=== PATIENT | male | born 1995 | race Hispanic/Latino ===

== ENCOUNTER 2019-03-09 17:48 | Emergency (ER) | payer SELFPAY ==
--- NOTE | 2019-03-09 18:54 | RAD REPORT ---
EXAM DESCRIPTION: RAD - Hand Right 3 View - 03/09/2019 6:29 pm CLINICAL HISTORY: Right hand pain status post injury FINDINGS: No fracture or dislocation is seen.
--- NOTE | 2019-03-09 19:08 | ER ---
Nurse's Notes [facility] Name: Bon England Age: 23 yrs Sex: Male : 1995 Arrival Date: 03/09/2019 Time: 17:52 Bed 20 Private MD: Diagnosis: Right hand pain Presentation: 03/09 17:52 Presenting complaint: Patient states: i did boxing and hurt my R hj hand now it still hurts and its strength is lesser; reports pain is 2/10;. Transition of care: patient was not received from another setting of care. Onset of symptoms was March 09, 2019 at 17:53. Risk Assessment: Do you want to hurt yourself or someone else? Patient reports no desire to harm self or others. Initial Sepsis Screen: Does the patient meet any 2 criteria? No. Patient's initial sepsis screen is negative. Does the patient have a suspected source of infection? No. Patient's initial sepsis screen is negative. Care prior to arrival: None. 17:52 Method Of Arrival: Ambulatory 17:52 Acuity: GRECIA 4 hj Triage Assessment: 18:01 General: Appears in no apparent distress. uncomfortable, Behavior is calm, cooperative, bp appropriate for age. Pain: Complains of pain in right hand. EENT: No deficits noted. Neuro: No deficits noted. Cardiovascular: No deficits noted. Respiratory: No deficits noted. GI: No signs and/or symptoms were reported involving the gastrointestinal system. : No signs and/or symptoms were reported regarding the genitourinary system. Derm: No deficits noted. Musculoskeletal: Circulation, motion, and sensation intact. Range of motion: intact in all extremities. Injury Description: Bruise sustained to right hand. Historical: - Allergies: 17:54 No Known Allergies; hj - PMHx: 17:54 None; hj - PSHx: 17:54 None; hj - Immunization history:: Adult Immunizations up to date. - Social history:: Smoking status: unknown. - Ebola Screening: : No symptoms or risks identified at this time. Screenin:03 Abuse screen: Denies threats or abuse. Denies injuries from another. Nutritional bp screening: No deficits noted. Tuberculosis screening: No symptoms or risk factors identified. Fall Risk None identified. Assessment: 18:03 General: SEE TRIAGE NOTE. bp 19:13 General: Appears in no apparent distress. comfortable, Behavior is calm, cooperative, cc3 appropriate for age. Pain: Complains of pain in right hand. Neuro: Level of Consciousness is awake, alert, obeys commands, Oriented to person, place, time, situation, Appropriate for age. Cardiovascular: Denies chest pain, Patient's skin is warm and dry. Respiratory: Airway is patent Respiratory effort is even, unlabored, Respiratory pattern is regular, symmetrical. GI: Abdomen is round non-distended. : No signs and/or symptoms were reported regarding the genitourinary system. EENT: No signs and/or symptoms were reported regarding the EENT system. Derm: Skin is intact, is healthy with good turgor, Skin is pink, warm \T\ dry. normal. Musculoskeletal: Circulation, motion, and sensation intact. Range of motion: limited in right hand. 19:13 Reassessment: Patient appears in no apparent distress at this time. Patient and/or cc3 family updated on plan of care and expected duration. Pain level reassessed. Patient is alert, oriented x 3, equal unlabored respirations, skin warm/dry/pink. Received this male patient from morning shift RN Miguel as a case of right hand injury. No IV cannula in situ. Patient denies pain at this time. 19:25 Reassessment: Patient appears in no apparent distress at this time. Patient and/or cc3 family updated on plan of care and expected duration. Pain level reassessed. Patient is alert, oriented x 3, equal unlabored respirations, skin warm/dry/pink. Dr. Matthews discharged home the patient with prescription given. Semi-formed right hand splint done by floor technoe Gonsales. No IV cannula in situ. Patient left ER vitally stable and ambulatory. Patient denies pain at this time. Patient states feeling better. Vital Signs: 17:54 BP 141 / 87; Pulse 84; Resp 18; Temp 98.2(O); Pulse Ox 100% on R/A; Weight 111.13 kg; hj Height 5 ft. 11 in. (180.34 cm); Pain 2/10; 19:09 BP 127 / 81; Pulse 48; Resp 17; Temp 98.1(TE); Pulse Ox 97% on R/A; mh5 17:54 Body Mass Index 34.17 (111.13 kg, 180.34 cm) ED Course: 17:52 Patient arrived in ED. mr 17:53 Triage completed. hj 17:54 Arm band placed on left wrist. hj 18:00 Miguel Doherty, RN is Primary Nurse. bp 18:03 Patient has correct armband on for positive identification. Bed in low position. Call bp light in reach. Side rails up X2. Adult w/ patient. 18:22 Matt Matthews MD is Attending Physician. ps1 18:29 XRAY Hand RIGHT 3 View In Process Unspecified. EDMS 19:25 No provider procedures requiring assistance completed. Patient did not have IV access cc3 during this emergency room visit. Administered Medications: No medications were administered Outcome: 19:08 Discharge ordered by . ps1 19:25 Discharged to home ambulatory. cc3 19:25 Condition: stable 19:25 Discharge instructions given to patient, Instructed on discharge instructions, follow up and referral plans. medication usage, Demonstrated understanding of instructions, follow-up care, medications, Prescriptions given X 3. 19:31 Patient left the ED. cc3 Signatures: Dispatcher [employer] [facility] Carmen Solares mr MarvinSamm vivar, RN RN Laurel Castellon [facility] Miguel Doherty, RN RN bp Matt Matthews MD MD ps1 Krai Platt cc3
--- NOTE | 2019-03-09 19:09 | EDPHYS ---
Physician Documentation [facility] Name: Bon England Age: 23 yrs Sex: Male : 1995 Arrival Date: 03/09/2019 Time: 17:52 Bed 20 Private MD: ED Physician Matt Matthews HPI: 03/09 19:02 This 23 yrs old Male presents to ER via Ambulatory with complaints of Hand ps1 Injury. 19:02 patient was boxing a couple of days ago and is right hand dominant. Pain at anatomical ps1 snuffbox. Pain rated as moderate. Has FROM but restricted 2/2 pain. NV intact. Historical: - Allergies: 17:54 No Known Allergies; hj - PMHx: 17:54 None; hj - PSHx: 17:54 None; hj - Immunization history:: Adult Immunizations up to date. - Social history:: Smoking status: unknown. - Ebola Screening: : No symptoms or risks identified at this time. ROS: 19:02 Constitutional: Negative for fever, chills, and weight loss, Eyes: Negative for injury, ps1 pain, redness, and discharge, Cardiovascular: Negative for chest pain, palpitations, and edema, Respiratory: Negative for shortness of breath, cough, wheezing, and pleuritic chest pain, Abdomen/GI: Negative for abdominal pain, nausea, vomiting, diarrhea, and constipation, Skin: Negative for injury, rash, and discoloration. 19:02 MS/extremity: Positive for pain. Exam: 19:02 Constitutional: This is a well developed, well nourished patient who is awake, alert, ps1 and in no acute distress. Head/Face: Normocephalic, atraumatic. Eyes: Pupils equal round and reactive to light, extra-ocular motions intact. Lids and lashes normal. Conjunctiva and sclera are non-icteric and not injected. Chest/axilla: Normal chest wall appearance and motion. Nontender with no deformity. No lesions are appreciated. Cardiovascular: Regular rate and rhythm. No gallops, murmurs, or rubs. Normal PMI, no JVD. No pulse deficits. Respiratory: Lungs have equal breath sounds bilaterally, clear to auscultation and percussion. No rales, rhonchi or wheezes noted. No increased work of breathing, no retractions or nasal flaring. Abdomen/GI: Soft, non-tender, with normal bowel sounds. No distension or tympany. No guarding or rebound. No evidence of tenderness throughout. 19:02 Musculoskeletal/extremity: Extremities: grossly normal except: noted in the dorsal aspect of proximal phalanx of right thumb: decreased ROM, pain. Vital Signs: 17:54 BP 141 / 87; Pulse 84; Resp 18; Temp 98.2(O); Pulse Ox 100% on R/A; Weight 111.13 kg; hj Height 5 ft. 11 in. (180.34 cm); Pain 2/10; 19:09 BP 127 / 81; Pulse 48; Resp 17; Temp 98.1(TE); Pulse Ox 97% on R/A; mh5 17:54 Body Mass Index 34.17 (111.13 kg, 180.34 cm) MDM: 19:01 Patient medically screened. ps1 19:02 Data reviewed: vital signs, nurses notes, and as a result, I will discharge patient. ps1 Counseling: I had a detailed discussion with the patient and/or guardian regarding: the historical points, exam findings, and any diagnostic results supporting the discharge/admit diagnosis, radiology results, to return to the emergency department if symptoms worsen or persist or if there are any questions or concerns that arise at home. ED course: rads negative for fx. home with thumb spica splint. . 03/09 17:56 Order name: XRAY Hand RIGHT 3 View; Complete Time: 19:01 Administered Medications: No medications were administered Disposition: 03/09/19 19:08 Discharged to Home. Impression: Right hand pain. - Condition is Stable. - Discharge Instructions: Hand Pain. - Prescriptions for Anaprox DS 550 mg Oral Tablet - take 1 tablet by ORAL route every 12 hours As needed; 20 tablet. Robaxin 500 mg Oral Tablet - take 2 tablet by ORAL route every 6 hours As needed; 40 tablet. Medrol ([place]) 4 mg Oral Tablets, Dose Pack - take 1 tablet by ORAL route as directed - follow package instructions; 1 packet. - Medication Reconciliation Form, Thank You Letter, Antibiotic Education, Prescription Opioid Use form. - Follow up: Emergency Department; When: As needed; Reason: Worsening of condition. Follow up: Private Physician; When: As needed; Reason: Further diagnostic work-up, Recheck today's complaints, Re-evaluation by your physician. - Problem is new. - Symptoms are unchanged. Signatures: Dispatcher [employer] EDMS Samm Wong RN RN Miguel Stanley RN RN bp Matt Matthews MD MD ps1 Kari Platt cc3 Corrections: (The following items were deleted from the chart) 19:31 19:08 03/09/2019 19:08 Discharged to Home. Impression: Right hand pain. Condition is cc3 Stable. Forms are Medication Reconciliation Form, Thank You Letter, Antibiotic Education, Prescription Opioid Use. Follow up: Emergency Department; When: As needed; Reason: Worsening of condition. Follow up: Private Physician; When: As needed; Reason: Further diagnostic work-up, Recheck today's complaints, Re-evaluation by your physician. Problem is new. Symptoms are unchanged. ps1
== END 2019-03-09 19:31 | disposition home or self-care (01) ==
LOC: ER 17:48
DX: M79.641 Pain in right hand (principal)
CPT/HCPCS: 99283